=== PATIENT | female | born 2000 ===

== ENCOUNTER 2020-06-04 16:58 | Emergency (ER) | payer MEDICAID ==
[~2020-06-04] VITALS: Ht 170.2 cm; Wt 79.5 kg
[2020-06-04 18:47] VITALS: BP 120/80
== END 2020-06-04 22:22 | disposition left against medical advice (07) ==
LOC: ER 16:59
DX: Z53.21 Procedure and treatment not carried out due to patient leaving prior to being seen by health care provider (principal)